=== PATIENT | male | born 1995 | race Caucasian/White ===

== ENCOUNTER 2024-03-19 07:19 | Observation (INO) | payer OTHER, SELFPAY ==
[2024-03-19] VITALS (11 sets, daily range): BP systolic 126–157; BP diastolic 73–98; PULSE 79–115; RESP 15–20; TEMP 36.4–36.9; O2SAT 95–100
--- NOTE | ~2024-03-19 | XR_ITS ---
Clinical Indication: Vomiting AP and lateral views of the chest: Comparison: None Findings: The lungs are clear, without evidence of focal consolidation or pleural effusion. Cardiome diastinal silhouette is within normal limits. Bones and soft tissues are unremarkable. Impression: Normal chest. Reviewed, dictated and finalized at location . Impression: Normal chest.
[2024-03-19 08:33] LABS: Basophils Percent Auto 0.1 % (0.2-1.2); Eosinophils Percent Auto 0.1 % (0-4.4); Hematocrit 47.6 % (42.0-52.0); Hemoglobin 17.3 g/dL (14.0-18.0); Immature Granulocyte Percent A 0.6 % (0-0.5); Lymphocytes Absolute Auto 0.65 K/mm3 (0.9-3.2); Lymphocytes Percent Auto 3.9 % (18.3-44.2); Mean Corpuscular HGB Conc 36.3 g/dl (32-36); Mean Corpuscular Hemoglobin 34.1 pg (26-34); Mean Corpuscular Volume 93.9 fl (80-100); Mean Platelet Volume 9.9 fl (7.4-10.4); Monocytes Absolute Auto 2.1 K/mm3 (0.1-0.6); Monocytes Percent Auto 12.2 % (2.6-8.5); Neutrophils Percent Auto 83.1 % (45.5-73.1); Platelet Count Result 375 k/mm3 (150-375); Red Blood Count 5.07 M/mm3 (4.6-6.20); White Blood Count 16.9 K/mm3 (4.5-10.0)
[2024-03-19 08:45] LABS: Alanine Aminotransferase 76 U/L (6-50); Albumin Level > 6.0 g/dL (3.5-5.1); Alkaline Phosphatase 113 U/L (38-126); Anion Gap 34 mmol/L (4-12); Aspartate Amino Transferase 55 U/L (17-59); Blood Urea Nitrogen 40 mg/dL (9-20); Calcium 10.5 mg/dL (8.4-10.2); Carbon Dioxide 13 mmol/L (22-30); Chloride 87 mmol/L (98-107); Estimated CRCL calculation 55 ml/min; Estimated Glomerular Filt Rate 40; Glucose 139 mg/dL (65-110); Potassium 3.6 mmol/L (3.4-5.0); Sodium 134 mmol/L (137-145)
[2024-03-19 08:53] LABS: Prothrombin Time 13.3 Seconds (11.1-14.7)
[2024-03-19 08:54] LABS: Partial Thromboplastin Time 24.4 Seconds (22.3-36.8)
--- NOTE | 2024-03-19 09:13 | ED.GIBLEED ---
HPI - GI Bleed General Chief complaint: GI Bleed Stated complaint: N/V Blood x2d Time Seen by Provider: 03/19/24 08:51 History of Present Illness HPI Narrative: 28-year-old male history of heavy alcohol use presents to the emergency room for evaluation of nausea and vomiting. The patient states he has had multiple episodes coffee-ground emesis over the last 2 days. States his most recent emesis was bilious. Denies any diarrhea or constipation. Of reports generalized abdominal pain that is worse prior to the improved afterwards. patient states he typically drinks at least 1 pt of alcohol a day, has been doing so for over 6 years. Related Data Allergies Allergy/AdvReac Type Severity Reaction Status Date / Time No Known Allergies Allergy Verified 03/19/24 09:32 Review of Systems Review of Systems: ROS unremarkable except for noted in HPI Exam Narrative: GENERAL: Well-appearing, well-nourished, no physical limitations, and in no acute distress. HEAD: Normocephalic, atraumatic. EYES: Conjunctivae normal, PERRLA and EOMI. CHEST: Clear to auscultation. No respiratory distress. No wheezes rales or rhonchi. HEART: Regular rate and rhythm. No murmur heard. Normal peripheral pulses. ABDOMEN: Soft, nontender, nondistended, normal active bowel sounds. BACK: No CVA tenderness EXTREMITIES: Normal range of motion. No edema. No clubbing or cyanosis SKIN: Warm, dry, no rash. No noted wounds NEURO: No focal deficits. Alert and oriented x3. MAEW. CN's II-XI intact bilaterally, normal gait PSYCH: Cooperative. Normal mood and affect. Course Course Emergency Course: 1200: Consulted with Dr. Faye. he is agreeable a consult patient for further evaluation Vital Signs Vital signs: Vital Signs Temperature 36.6 C 03/19/24 07:22 Pulse Rate 115 H 03/19/24 07:22 Respiratory Rate 20 03/19/24 07:22 Blood Pressure 136/95 H 03/19/24 07:22 Pulse Oximetry 100 03/19/24 07:22 Oxygen Delivery Room Air 03/19/24 07:22 Temperature 36.6 C 03/19/24 07:22 Pulse Rate 115 H 03/19/24 07:22 Respiratory Rate 20 03/19/24 07:22 Blood Pressure 136/95 H 03/19/24 07:22 Pulse Oximetry 100 03/19/24 07:22 Oxygen Delivery Room Air 03/19/24 07:22 MDM - GI Bleed Lab Data 03/19/24 08:26 03/19/24 08:26 Labs: Lab Results 03/19/24 03/19/24 03/19/24 Range/Units 08:26 09:39 11:22 WBC 16.9 H (4.5-10.0) K/mm3 RBC 5.07 (4.6-6.20) M/mm3 Hgb 17.3 (14.0-18.0) g/dL Hct 47.6 (42.0-52.0) % MCV 93.9 (80-100) fl MCH 34.1 H (26-34) pg MCHC 36.3 H (32-36) g/dl RDW 13.0 (11.5-14.5) % Plt Count 375 (150-375) k/mm3 MPV 9.9 (7.4-10.4) fl Immature Gran % (Auto) 0.6 H (0-0.5) % Neut % (Auto) 83.1 H (45.5-73.1) % Lymph % (Auto) 3.9 L (18.3-44.2) % [place] % (Auto) 12.2 H (2.6-8.5) % Eos % (Auto) 0.1 (0-4.4) % Baso % (Auto) 0.1 L (0.2-1.2) % Lymph # (Auto) 0.65 L (0.9-3.2) K/mm3 [place] # (Auto) 2.1 H (0.1-0.6) K/mm3 Eos # (Auto) 0.0 (0-0.3) K/mm3 Baso # (Auto) 0.0 (0.0-0.1) K/mm3 Abs Immat Gran (auto) 0.10 H (0.00-0.031) K/mm3 Absolute Neuts (auto) 14.0 H (1.3-6.7) K/mm3 Absolute Nucleated RBC 0.000 (0.0-0.012) K/mm3 Nucleated RBC % 0.0 (0.0-0.2) % PT 13.3 (11.1-14.7) Seconds INR 1.0 APTT 24.4 (22.3-36.8) Seconds Sodium 134 L (137-145) mmol/L Potassium 3.6 (3.4-5.0) mmol/L Chloride 87 L (98-107) mmol/L Carbon Dioxide 13 L (22-30) mmol/L Anion Gap 34 H (4-12) mmol/L BUN 40 H (9-20) mg/dL Creatinine 2.00 H (0.7-1.3) mg/dL Estim Creat Clear Calc 55 ml/min Estimated GFR 40 L (59 - ) Glucose 139 H (65-110) mg/dL Lactic Acid 2.2 H (0.7-2.0) mmol/L Calcium 10.5 H (8.4-10.2) mg/dL Total Bilirubin 1.0 (0.2-1.3) mg/dL AST 55 (17-59) U/L ALT 76 H (6-50) U/L Alkaline Phosphatase 113 (38-1
[2024-03-19] MEDS: PANTOPRAZOLE SODIUM IV 40 MG VIAL 80 MG IV PUSH (09:40)
[2024-03-19] MEDS: ONDANSETRON INJ 4 MG/2 ML VIAL IV PUSH ×2 (09:42→18:59)
[2024-03-19] MEDS: SODIUM CHLORIDE 0.9% IV 1,000 ML 999 ML IV CONT ×2 (09:42→10:42)
[2024-03-19] MEDS: Please add drug allergy info to patient profile. 1 EACH XX (09:43)
[2024-03-19 09:56] LABS: Lactic Acid Reflex 2.2 mmol/L (0.7-2.0); Lipase 96 U/L (23-300)
[2024-03-19 11:42] LABS: Appearance Urine Cloudy (Clear); Bacteria Urine None Seen /hpf; Bilirubin Urine Negative (Negative); Blood Urine 2+ (Negative); Color Urine Yellow (Yellow); Glucose Urine UA Negative (Negative); Hyaline Casts Urine Present /lpf; Ketones Urine 2+ mg/dL (Negative); Leukocyte Esterase Ur Negative LEU/UL (Negative); Need Manual Microscopic Reviewed; Nitrate Urine Negative (Negative); Non Pathogenic Casts >20; Protein Urine 4+ mg/dL (Negative); RBC Urine 0-2 /hpf (0-2); Specific Grav Ur 1.025 (1.001-1.035); Squamous Epithelial Cell Urine None Seen /hpf (Few); WBC Urine 0-5 /hpf (0-3)
[2024-03-19 11:45] LABS: Add Urine Microscopic? YES
[2024-03-19 12:43] LABS: Reflex Lactic Acid Yes or No Add Lactic
--- NOTE | 2024-03-19 13:00 | PM.IMHP ---
H&P: HPI History of Present Illness Date/Time: 03/19/24 13:00 Chief Complaint: Vomiting blood. Narrative: This is a pleasant 28-year-old male with history of heavy alcohol use and anxiety who presented to the emergency department via private vehicle for evaluation of vomiting blood. The patient provides the following history. He has drank a pint of alcohol a day for the past 6 years but has been cutting down lately and he has not had any alcohol for 1 week. He had mild withdrawal symptoms but does seem to have resolved. The last 2 days he has developed generalized abdominal discomfort with nausea and innumerable bouts of coffee-ground emesis. He endorses increasing personal stress lately and says he drinks a lot of caffeine. He denies NSAID use. He has no known history of peptic ulcers or gastritis. He denies hallucinations, tremors, chest pain, shortness of breath, epigastric pain, bloating, melena, and hematochezia. In the ED: He was afebrile on arrival with a blood pressure of 136/95 and a pulse of 115. Labs are significant for WBC count of 16.9, hemoglobin 17.3, hematocrit 47.9%, platelets 375, INR 1.0, sodium 134, chloride 87, carbon dioxide 13, anion gap 34, BUN 40, creatinine 2.00, lactic acid 2.2, calcium 10.5, ALT 76, total protein 11, albumin greater than 6.0. Urine is positive for 4+ protein, and 2+ ketones, 2+ blood. Chest x-ray showed a normal chest. He was given 2 L normal saline, pantoprazole 80 mg IV, and ondansetron 4 mg IV. He is being admitted in this setting for supportive care and GI consultation. Review of Systems Review of Systems: 12 systems were reviewed and are negative except for as per HPI. [facility] Past Medical History Medical History Alcohol abuse Anxiety Vapes nicotine containing substance Social History Social History (Updated 03/19/24 @ 19:56 by Mariana Camacho PA-C) Social History: Surrogate medical decision maker: Afshin Edward, father. Code status: Full code. Smoking status: Former smoker Tobacco type: e-cigarettes/vaping Second hand tobacco smoke exposure: No Alcohol intake: former Alcohol use details: Drinks a pint of alcohol a day. Do You Feel Safe in your Home?: Yes Lack of Transportation: No Lack of Food: Never True Current Housing: I Have Housing Concerned About Future Housing: No Difficulty Paying Gas/Electric Bills: No Difficulty Paying for Meds: No Currently Unemployed: No Education: Don't Know Difficulty w/ Childcare or Family Care: No Spiritual care concerns: No Meds Home Medications and Allergies Allergies Allergy/AdvReac Type Severity Reaction Status Date / Time No Known Allergies Allergy Verified 03/19/24 14:28 Vital Signs Vital Signs - 24 hr 03/19/24 07:22 Temperature 97.9 F Pulse Rate 115 H Respiratory Rate 20 Blood Pressure 136/95 H Pulse Oximetry 100 Oxygen Delivery Room Air Exam Narrative: General: Moderately ill-appearing gentleman in the semi-Mane position in bed. Weight: 77.2 kg. BMI: 22.5. HEENT: Normocephalic, atraumatic. PERRL, EOMI. Sclera anicteric. Dry mucous membranes. Neck: Supple. Respiratory: Lungs are clear to auscultation bilaterally. Cardiovascular: Tachycardic with normal S1-S2. Gastrointestinal: Abdomen is soft and nondistended with positive bowel sounds. Mildly tender to palpation epigastric region. No guarding or rebound tenderness. Skin: Warm and mildly diaphoretic. Extremities: No cyanosis, clubbing, or edema. Radial and pedal pulses intact. Neurological: Alert. Cranial nerves 2-12 are grossly intact. No tremors. No gross focal deficits to casual conversation. Psychiatric: Pleasant and cooperative with appropriate mood and flat affect. H&P: Results Labs Labs: Short CBC 03/19/24 Range/Units 08:26 WBC 16.9 H (4.5-10.0) K/mm3 Hgb 17.3 (14.0-18.0) g/dL Hct 47.6 (42.0-52.0) % Plt Count 375 (150-375) k/mm3 [facility] 03/19/24 08:26 Sodium
[2024-03-19] MEDS: SODIUM CHLORIDE 0.9% IV 1,000 ML 125 ML IV CONT (13:17)
[2024-03-19 13:51] LABS: Hematocrit 44.4 % (42.0-52.0); Hemoglobin 15.5 g/dL (14.0-18.0)
[2024-03-19 14:02] LABS: Lactic Acid Reflex 0.9 mmol/L (0.7-2.0)
[2024-03-19 14:03] LABS: Anion Gap 22 mmol/L (4-12); Blood Urea Nitrogen 35 mg/dL (9-20); Calcium 9.5 mg/dL (8.4-10.2); Carbon Dioxide 19 mmol/L (22-30); Chloride 95 mmol/L (98-107); Estimated CRCL calculation 73 ml/min; Estimated Glomerular Filt Rate 56; Glucose 113 mg/dL (65-110); Magnesium 2.5 mg/dL (1.6-2.3); Potassium 3.9 mmol/L (3.4-5.0); Sodium 136 mmol/L (137-145)
[2024-03-19 14:21] LABS: Creatine Kinase 295 U/L (55-170)
--- NOTE | 2024-03-19 14:28 | ADMGEN ---
This patient, Mainor Edward, was admitted to [facility] Surg Room 312-01. Patient/family oriented to hospital policies and general routines including ID bracelet, bed and alarms, visiting hours, pain management, procedures, bathroom and other care routines, personal items, smoking policy, room service/diet, and visiting hours. Information on how to activate the Rapid Response Team has been discussed. Patient/Family are encouraged to report perceived risks to care and to ask questions if they do not understand what they are told or what they should do.
[2024-03-19] MEDS: THIAMINE HCL 200 MG/2 ML VIAL 100 MG IV PUSH (15:36)
[2024-03-19] MEDS: PROMETHAZINE HCL 25 MG/ML AMPUL 12.5 MG IV PUSH (20:43)
[2024-03-19] MEDS: NICOTINE (*PBKC) 14 MG PATCH 1 PATCH TRANSDERM (20:43)
[2024-03-19] MEDS: PANTOPRAZOLE SODIUM IV 40 MG VIAL IV PUSH (20:46)
[2024-03-19] MEDS: DEXTROSE 5%/0.9% SOD CHL 1,000 ML 125 ML IV CONT (22:26)
[2024-03-20] VITALS (9 sets, daily range): BP systolic 105–133; BP diastolic 61–79; PULSE 66–85; RESP 16–20; TEMP 36.1–37; O2SAT 96–100
[2024-03-20] MEDS: DEXTROSE 5%/0.9% SOD CHL 1,000 ML 125 ML IV CONT (06:23)
[2024-03-20 06:38] LABS: Basophils Percent Auto 0.2 % (0.2-1.2); Eosinophils Percent Auto 0.1 % (0-4.4); Hematocrit 41.3 % (42.0-52.0); Hemoglobin 13.6 g/dL (14.0-18.0); Immature Granulocyte Absolute 0.05 K/mm3 (0.00-0.031); Immature Granulocyte Percent A 0.5 % (0-0.5); Lymphocytes Absolute Auto 1.34 K/mm3 (0.9-3.2); Lymphocytes Percent Auto 13.9 % (18.3-44.2); Mean Corpuscular HGB Conc 32.9 g/dl (32-36); Mean Corpuscular Hemoglobin 32.9 pg (26-34); Mean Platelet Volume 9.9 fl (7.4-10.4); Monocytes Absolute Auto 1.2 K/mm3 (0.1-0.6); Monocytes Percent Auto 12.7 % (2.6-8.5); Neutrophils Percent Auto 72.6 % (45.5-73.1); Platelet Count Result 278 k/mm3 (150-375); Red Blood Count 4.13 M/mm3 (4.6-6.20); Red Cell Distribution Width 13.2 % (11.5-14.5); White Blood Count 9.6 K/mm3 (4.5-10.0)
--- NOTE | 2024-03-20 06:47 | PC.NURSE ---
I have reviewed the charting and agree with the findings. Will continue to monitor and watch for changes.
[2024-03-20 06:49] LABS: Alanine Aminotransferase 50 U/L (6-50); Albumin Level 4.6 g/dL (3.5-5.1); Alkaline Phosphatase 71 U/L (38-126); Anion Gap 9 mmol/L (4-12); Aspartate Amino Transferase 47 U/L (17-59); Bilirubin,Total 1.1 mg/dL (0.2-1.3); Blood Urea Nitrogen 22 mg/dL (9-20); Calcium 9.4 mg/dL (8.4-10.2); Carbon Dioxide 30 mmol/L (22-30); Chloride 100 mmol/L (98-107); Estimated CRCL calculation 101 ml/min; Estimated Glomerular Filt Rate > 60; Glucose 105 mg/dL (65-110); Magnesium 2.6 mg/dL (1.6-2.3); Potassium 3.8 mmol/L (3.4-5.0); Sodium 139 mmol/L (137-145)
[2024-03-20] MEDS: PANTOPRAZOLE SODIUM IV 40 MG VIAL IV PUSH (09:00)
[2024-03-20] MEDS: NICOTINE (*PBKC) 14 MG PATCH 1 PATCH TRANSDERM (09:00)
[2024-03-20] MEDS: LACTATED RINGERS 1,000 ML 150 ML IV CONT (11:12)
--- NOTE | 2024-03-20 11:12 | WPDANESEPPF ---
Anes - Initial Pre Proc Eval Procedure: Operation Date: 03/20/24 12:00 Proposed Procedures p Esophagogastroduodenoscopy - Tomy Reyes MD Date/Time: 03/20/24 11:12 Surgeon: Nora Newman APRN Pre Op Diagnosis: Upper GI Bleed Patient Data Age: 28 Gender: M Height: 1.85 m Weight: 90.5 kg Last Vital Signs Temp 97 F L 03/20/24 11:08 Pulse 74 03/20/24 11:08 Resp 18 03/20/24 11:08 BP 132/79 03/20/24 11:08 Pulse Ox 100 03/20/24 11:08 O2 Del Method Room Air 03/20/24 11:08 Allergies Allergy/AdvReac Type Severity Reaction Status Date / Time No Known Allergies Allergy Verified 03/19/24 14:28 Home Medications Medication Instructions Recorded Confirmed Type No Home Medications 03/20/24 03/20/24 History Laboratory Tests 03/19/24 03/19/24 03/19/24 11:22 13:45 13:47 WBC RBC Hgb 15.5 g/dL (14.0-18.0) Hct 44.4 % (42.0-52.0) MCV MCH MCHC RDW Plt Count MPV Immature Gran % (Auto) Neut % (Auto) Lymph % (Auto) [place] % (Auto) Eos % (Auto) Baso % (Auto) Lymph # (Auto) [place] # (Auto) Eos # (Auto) Baso # (Auto) Abs Immat Gran (auto) Absolute Neuts (auto) Absolute Nucleated RBC Nucleated RBC % Sodium 136 L mmol/L (137-145) Potassium 3.9 mmol/L (3.4-5.0) Chloride 95 L mmol/L (98-107) Carbon Dioxide 19 L mmol/L (22-30) Anion Gap 22 H mmol/L (4-12) BUN 35 H mg/dL (9-20) Creatinine 1.50 H mg/dL (0.7-1.3) Estim Creat Clear Calc 73 ml/min Estimated GFR 56 L (59 - ) Glucose 113 H mg/dL (65-110) Lactic Acid 0.9 mmol/L (0.7-2.0) Calcium 9.5 mg/dL (8.4-10.2) Magnesium 2.5 H mg/dL (1.6-2.3) Total Bilirubin AST ALT Alkaline Phosphatase Total Creatine Kinase 295 H U/L (55-170) Total Protein Albumin Urine Color Yellow (Yellow) Urine Appearance Cloudy H (Clear) Urine pH 6.0 (5.0-9.0) Ur Specific Candor 1.025 (1.001-1.035) Urine Protein 4+ H mg/dL (Negative) Urine Glucose (UA) Negative mg/dL (Negative) Urine Ketones 2+ H mg/dL (Negative) Ur Blood (Man) 2+ H (Negative) Urine Nitrate Negative (Negative) Urine Bilirubin Negative (Negative) Urine Urobilinogen 1.0 mg/dL (<2.0) Add Ur Microanalysis Reviewed Leukocyte Esterase Rfl Negative JEN/UL (Negative) Urine RBC 0-2 /hpf (0-2) Urine WBC 0-5 /hpf (0-3) Ur Squamous Epith Cells None seen /hpf (Few) Urine Bacteria None seen /hpf Urine Casts >20 Hyaline Casts Present /lpf (None) 03/20/24 06:15 WBC 9.6 K/mm3 (4.5-10.0) RBC 4.13 L M/mm3 (4.6-6.20) Hgb 13.6 L g/dL (14.0-18.0) Hct 41.3 L % (42.0-52.0) MCV 100.0 D fl (80-100) MCH 32.9 pg (26-34) MCHC 32.9 g/dl (32-36) RDW 13.2 % (11.5-14.5) Plt Count 278 k/mm3 (150-375) MPV 9.9 fl (7.4-10.4) Immature Gran % (Auto) 0.5 % (0-0.5) Neut % (Auto) 72.6 % (45.5-73.1) Lymph % (Auto) 13.9 L % (18.3-44.2) [place] % (Auto) 12.7 H % (2.6-8.5) Eos % (Auto) 0.1 % (0-4.4) Baso % (Auto) 0.2 % (0.2-1.2) Lymph # (Auto) 1.34 K/mm3 (0.9-3.2) [place] # (Auto) 1.2 H K/mm3 (0.1-0.6) Eos # (Auto) 0.0 K/mm3 (0-0.3) Baso # (Auto) 0.0 K/mm3 (0.0-0.1) Abs Immat Gran (auto) 0.05 H K/mm3 (0.00-0.031) Absolute Neuts (auto) 7.0 H K/mm3
--- NOTE | 2024-03-20 12:16 | WPDGICN ---
Assessment and Plan Assessment and plan (1) Hematemesis: Code(s): K92.0 - Hematemesis Status: Acute Assessment and Plan: will proceed with urgent EGD probably esophagitis, assess for varices, ulcer, etc iv protonix stop drinking alcohol more recommendations after egd (2) Alcohol abuse: Code(s): F10.10 - Alcohol abuse, uncomplicated Status: Acute Assessment and Plan: monitor for withdrawal on thiamine, nutrition support (3) Acute kidney injury: Code(s): N17.9 - Acute kidney failure, unspecified Status: Acute Assessment and Plan: iv fluids and improving here with dehydration (4) Ketoacidosis: Code(s): E87.29 - Other acidosis Status: Acute Assessment and Plan: treated (5) Dehydration: Code(s): E86.0 - Dehydration Status: Acute (6) Anxiety: Code(s): F41.9 - Anxiety disorder, unspecified Status: Acute (7) Elevated transaminase level: Code(s): R74.01 - Elevation of levels of liver transaminase levels Status: Acute Assessment and Plan: from alcohol use, normal bili normalized now monitor will check hepatitis panel GI Consult Note Consult date/time: 03/20/24 12:16 Reason for consult: coffee ground emesis, intractable n/v HPI: Mainor Edward is a 28 year old male with history of heavy alcohol use (1 pint every 2 days for years) and anxiety who presented to the emergency department via private vehicle for evaluation of vomiting blood for last 2 days. He says that has not had alcohol for at least a week then developed mild withdrawal symptoms but resolved however last 2 days with epigastric pain and intractable nausea and innumerable bouts of coffee-ground emesis. He denies NSAID use. Never had EGD and is not taking ppi. Labs were significant for WBC count of 16.9, hemoglobin 17.3, hematocrit 47.9%, platelets 375, INR 1.0, sodium 134, chloride 87, carbon dioxide 13, anion gap 34, BUN 40, creatinine 2.00, lactic acid 2.2, calcium 10.5, ALT 76, total protein 11, albumin greater than 6.0. Urine is positive for 4+ protein, and 2+ ketones, 2+ blood. Chest x-ray showed a normal chest. Nausea has improved after medical management, started on thiamine, iv protonix and npo status. lipase normal. Denies melena. Review of Systems Constitutional: Constitutional: Denies chills Eyes: Eyes: Denies blurry vision ENT: Comments: sinus drainage Cardiovascular: Cardiovascular: Denies chest pain Respiratory: Respiratory: Denies dyspnea Gastrointestinal: Gastrointestinal: Reports nausea, Reports vomiting and Reports hematemesis Genitourinary: Genitourinary: Denies dysuria Musculoskeletal: Musculoskeletal: Denies myalgias Integumentary/Breasts: Skin/Breast: Denies rash Neurologic: Denies confusion Psychiatric: Psychiatric: Reports anxiety PMF Past Medical History Medical History Alcohol abuse Anxiety Elevated transaminase level Vapes nicotine containing substance Social History Social History (Updated 03/19/24 @ 19:56 by Mariana Camacho PA-C) Social History: Surrogate medical decision maker: Afshin Edward, father. Code status: Full code. Smoking status: Former smoker Tobacco type: e-cigarettes/vaping Second hand tobacco smoke exposure: No Alcohol intake: former Alcohol use details: Drinks a pint of alcohol a day. Do You Feel Safe in your Home?: Yes Lack of Transportation: No Lack of Food: Never True Current Housing: I Have Housing Concerned About Future Housing: No Difficulty Paying Gas/Electric Bills: No Difficulty Paying for Meds: No Currently Unemployed: No Education: Don't Know Difficulty w/ Childcare or Family Care: No Spiritual care concerns: No Meds Home Medications and Allergies Home Medications Medication Instructions Recorded Confirmed Type No Home Medications 03/20/24 03/20/24 History Allergies Allergy/Adv
--- NOTE | 2024-03-20 13:22 | PM.DS ---
DS: Admitting Diagnosis Discharge Date 03/20/2024 Admitting Diagnosis Vomiting blood DS: Discharge Diagnosis Discharge Diagnosis (1) Hematemesis: Code(s): K92.0 - Hematemesis Status: Acute (2) Acute kidney injury: Code(s): N17.9 - Acute kidney failure, unspecified Status: Acute (3) Ketoacidosis: Code(s): E87.29 - Other acidosis Status: Acute (4) Dehydration: Code(s): E86.0 - Dehydration Status: Acute (5) Alcohol abuse: Code(s): F10.10 - Alcohol abuse, uncomplicated Status: Acute (6) Anxiety: Code(s): F41.9 - Anxiety disorder, unspecified Status: Acute (7) Vapes nicotine containing substance: Code(s): Z72.0 - Tobacco use Status: Acute Plan Plan The patient presented to the emergency department for evaluation of coffee-ground emesis for the past 2 days after having quit drinking approximately 1 week ago as detailed in HPI. Labs, imaging, EKG, and all reports were personally reviewed. History is concerning for esophagitis, gastritis, or possible ulcers. Varices are a consideration but seem less likely thus will hold on octreotide and ceftriaxone. Continue pantoprazole and trend hemoglobin and hematocrit. Dr. Reyes has been consulted and the patient will be NPO after midnight for probable EGD tomorrow. He has an acute kidney injury which is likely due to profound dehydration and he will be aggressively hydrated. Ketoacidosis and renal failure should improve with hydration and labs will be monitored closely. Avoid nephrotoxic agents and monitor strict I/O. He had withdrawal symptoms several days ago and seems to be doing well at this time however we will initiate CIWA protocol. Nicotine patch ordered per patient request. Resume fluoxetine and propanolol for anxiety once tolerating p.o.. Findings and treatment plan were discussed with the patient. Questions were solicited and answered to satisfaction. The patient's medical management will be taken over by the hospitalist team in a.m. DS: Summary Hospital Course Reason for hospitalization: Vomiting Blood Hospital Course: Admission: Medical Chart Narrative: This is a pleasant 28-year-old male with history of heavy alcohol use and anxiety who presented to the emergency department via private vehicle for evaluation of vomiting blood. The patient provides the following history. He has drank a pint of alcohol a day for the past 6 years but has been cutting down lately and he has not had any alcohol for 1 week. He had mild withdrawal symptoms but does seem to have resolved. The last 2 days he has developed generalized abdominal discomfort with nausea and innumerable bouts of coffee-ground emesis. He endorses increasing personal stress lately and says he drinks a lot of caffeine. He denies NSAID use. He has no known history of peptic ulcers or gastritis. He denies hallucinations, tremors, chest pain, shortness of breath, epigastric pain, bloating, melena, and hematochezia. In the ED: He was afebrile on arrival with a blood pressure of 136/95 and a pulse of 115. Labs are significant for WBC count of 16.9, hemoglobin 17.3, hematocrit 47.9%, platelets 375, INR 1.0, sodium 134, chloride 87, carbon dioxide 13, anion gap 34, BUN 40, creatinine 2.00, lactic acid 2.2, calcium 10.5, ALT 76, total protein 11, albumin greater than 6.0. Urine is positive for 4+ protein, and 2+ ketones, 2+ blood. Chest x-ray showed a normal chest. He was given 2 L normal saline, pantoprazole 80 mg IV, and ondansetron 4 mg IV. He is being admitted in this setting for supportive care and GI consultation. 03/20/2024: DISCHARGED Patient underwent EGD which showed a grade 4 reflux esophagitis with chronic inflammation tissue and ulcers but no varices noted. Patient was also found to a hiatal hernia at the GE junction. GI recommended long-term PPI b.i.d. as well Carafate with each meal for 2 weeks. Patient tolerated pr
== END 2024-03-20 14:05 | disposition home or self-care (01) ==
LOC: ANHED 12:51 → ANH3MEDSUR 15:02
PROVIDERS: Emergency Medicine; Internal Medicine Gastroenterology; Physician Assistant; Admitting Provider General Practice; Emergency Provider Nurse Practitioner Family; Visit Provider Nurse Practitioner Family
PROC: 0DJ08ZZ Inspection of Upper Intestinal Tract, Via Natural or Artificial Opening Endoscopic (ICD-10-PCS; CPT 43235; principal; 2024-03-20 12:00)
DX: K92.0 Hematemesis (principal); N17.9 Acute kidney failure, unspecified; K29.50 Unspecified chronic gastritis without bleeding; K21.00 Gastro-esophageal reflux disease with esophagitis, without bleeding; K44.9 Diaphragmatic hernia without obstruction or gangrene; E87.29 Other acidosis; E86.0 Dehydration; R74.01 Elevation of levels of liver transaminase levels; F10.10 Alcohol abuse, uncomplicated; F41.9 Anxiety disorder, unspecified; F17.290 Nicotine dependence, other tobacco product, uncomplicated
CPT/HCPCS: 43239; 36415; 71046; 80048; 80053; 81001; 82550; 83605; 83690; 83735; 85014; 85018; 85025; 85610; 85730; 86850; 86900; 86901; 88305; 96361; 96374; 96375; 99285; A9270; G0378; J2405; J2470; J2550; J2704; J3411; J7030; J7042; J7120

== ENCOUNTER 2024-05-13 11:13 | Observation (INO) | payer OTHER, SELFPAY ==
[2024-05-13] VITALS (7 sets, daily range): BP systolic 103–158; BP diastolic 75–84; PULSE 77–100; RESP 12–23; TEMP 36.4–37.2; O2SAT 99–100; BMI 25.4
[2024-05-13 12:22] LABS: Basophils Percent Auto 0.1 % (0.2-1.2); Eosinophils Percent Auto 0.1 % (0-4.4); Hematocrit 49.1 % (42.0-52.0); Hemoglobin 16.5 g/dL (14.0-18.0); Immature Granulocyte Absolute 0.15 K/mm3 (0.00-0.031); Immature Granulocyte Percent A 0.9 % (0-0.5); Lymphocytes Absolute Auto 0.55 K/mm3 (0.9-3.2); Lymphocytes Percent Auto 3.4 % (18.3-44.2); Mean Corpuscular HGB Conc 33.6 g/dl (32-36); Mean Corpuscular Hemoglobin 32.8 pg (26-34); Mean Corpuscular Volume 97.6 fl (80-100); Mean Platelet Volume 10.4 fl (7.4-10.4); Monocytes Absolute Auto 1.2 K/mm3 (0.1-0.6); Monocytes Percent Auto 7.4 % (2.6-8.5); Neutrophils Absolute Auto 14.4 K/mm3 (1.3-6.7); Neutrophils Percent Auto 88.1 % (45.5-73.1); Platelet Count Result 376 k/mm3 (150-375); Red Blood Count 5.03 M/mm3 (4.6-6.20); Red Cell Distribution Width 12.5 % (11.5-14.5); White Blood Count 16.3 K/mm3 (4.5-10.0)
[2024-05-13 12:27] LABS: Prothrombin Time 13.7 Seconds (11.1-14.7)
[2024-05-13 12:28] LABS: Partial Thromboplastin Time 24.9 Seconds (22.3-36.8)
[2024-05-13 12:48] LABS: Alanine Aminotransferase 47 U/L (6-50); Alkaline Phosphatase 122 U/L (38-126); Anion Gap 41 mmol/L (4-12); Aspartate Amino Transferase 45 U/L (17-59); Bilirubin,Total 1.2 mg/dL (0.2-1.3); Blood Urea Nitrogen 31 mg/dL (9-20); Calcium 9.8 mg/dL (8.4-10.2); Carbon Dioxide 11 mmol/L (22-30); Chloride 86 mmol/L (98-107); Estimated CRCL calculation 57 ml/min; Estimated Glomerular Filt Rate 40; Glucose 159 mg/dL (65-110); Sodium 138 mmol/L (137-145)
[2024-05-13 13:09] LABS: Albumin Level > 6.0 g/dL (3.5-5.1)
--- NOTE | 2024-05-13 13:43 | ED.ABDPAIN ---
HPI - Abdominal Pain General Chief Complaint: Abdominal Pain Stated Complaint: I believed my ulcer opened up Time Seen by Provider: 05/13/24 13:17 Source: patient Mode of arrival: ambulatory Limitations: clinical condition (vomiting/retching) History of Present Illness HPI narrative: Patient presents with concern that his ulcer opened up. Diagnosed with this approximately 1 month ago during an admission here when an EGD was performed. Had been prescribed medications and reports taking about 1/2 of them and then stopping. Drinks a few pints of alcohol per week. No NSAIDs. States the vomit is dark and occurring nearly hourly. He only has abdominal pain with vomiting. Started having coffee ground emesis around midnight. Related Data Home Medications Medication Instructions Recorded Confirmed No Home Medications 03/20/24 05/14/24 Allergies Allergy/AdvReac Type Severity Reaction Status Date / Time No Known Allergies Allergy Verified 05/14/24 08:56 [facility] Past Medical History Medical History Alcohol abuse Anxiety Coffee ground emesis Reflux esophagitis Vapes nicotine containing substance Surgical History Surgical History History of esophagogastroduodenoscopy (03/2024) Grade 4 reflux esophagitis and hiatal hernia. Social History Social History Social History: Surrogate medical decision maker: Afshin Edward, father. Code status: Full code. Years smoked: 9 Smoking status: Current every day smoker Tobacco type: e-cigarettes/vaping Second hand tobacco smoke exposure: No Alcohol intake: former Alcohol use details: Drinks a pint of alcohol a day. Substance use: current Substance use type: marijuana Other substance usage details: Daily marijuana Last use: 05/13/24 Do You Feel Safe in your Home?: Yes Lack of Transportation: No Lack of Food: Never True Current Housing: I Have Housing Concerned About Future Housing: No Difficulty Paying Gas/Electric Bills: No Difficulty Paying for Meds: No Currently Unemployed: No Education: Trade/Vocational Certificate Difficulty w/ Childcare or Family Care: No Spiritual care concerns: No Exam Narrative: GENERAL: in mild acute distress. HEAD: Normocephalic, atraumatic. EYES: Non injected, non icteric ENT: Nares clear, no rhinorrhea or epistaxis. No frankly bloody or dried blood on tongue or posterior oropharynx. NECK: Supple. CHEST: Speaking in full sentences. No respiratory distress. HEART: Regular rate and rhythm. . ABDOMEN: Soft, nondistended. Non tender to palpation. EXTREMITIES: Normal range of motion. No lower extremity edema. SKIN: Warm, dry, no rash. NEURO: No focal deficits. Alert and oriented x3. PSYCH: Normal mood and affect. Course Vital Signs Vital signs: Vital Signs Temperature 97.6 F 05/13/24 11:33 Pulse Rate 98 05/13/24 11:33 Respiratory Rate 20 05/13/24 11:33 Blood Pressure 138/82 05/13/24 11:33 Pulse Oximetry 100 05/13/24 11:33 Oxygen Delivery Room Air 05/13/24 11:33 Temperature 99.2 F 05/14/24 13:34 Pulse Rate 84 05/14/24 13:34 Respiratory Rate 20 05/14/24 13:34 Blood Pressure 131/84 05/14/24 13:34 Pulse Oximetry 100 05/14/24 13:34 Oxygen Delivery Room Air 05/14/24 10:06 MDM - Abdominal Pain MDM Narrative Medical decision making narrative: Patient presents with concern for upper GI Bleed. He was diagnosed with an ulcer approxiamtely a month ago and thinks it opened up . Regular alcohol consumption. Reports coffee ground emesis and other dark emesis. In the ED he has vital signs within normal limits. Given protonix and antiemetics. Patient has an ALEJANDRO. Receiving fluids. Hyperalbuminemia. Continuing to vomit. Additional meds ordered. Mild hyperglycemia but with large anion gap and acidosis. [place] bleedin
[2024-05-13] MEDS: SODIUM CHLORIDE 0.9% IV 1,000 ML 999 ML IV CONT ×2 (14:09→15:29)
[2024-05-13] MEDS: PANTOPRAZOLE SODIUM IV 40 MG VIAL 80 MG IV PUSH (14:11)
[2024-05-13] MEDS: ONDANSETRON INJ 4 MG/2 ML VIAL IV PUSH (14:11)
[2024-05-13 14:36] LABS: Lactic Acid Reflex 2.4 mmol/L (0.7-2.0)
[2024-05-13] MEDS: PROCHLORPERAZINE EDISYLATE 10 MG/2 ML VIAL 5 MG IV PUSH (14:41)
[2024-05-13 14:47] LABS: Alveolar/Arterial O2 Gradient 14.8 mmHg; Base Excess ABG -4.9 mEq/l (+/-2.0); Fractional Inspired Oxygen 21 %; HCO3 ABG 15.4 mEq/l (22.0-26.0); Oxygen Content ABG 22.4 %vol (16.0-22.0); Oxygen Saturation ABG 98.5 % (95.0-100.0); Oxyhemoglobin 98.1 % THb (90.0-100.0); PO2 ABG 110.6 mmHg (80.0-100.0); PO2 FiO2 Ratio Arterial Blood 5.27 %; Total Hemoglobin 16.2 g/dL (12.0-18.0); pH ABG 7.498 (7.350-7.450)
[2024-05-13 14:50] LABS: Device ROOM AIR; Modified Allen's Test Pass; PCO2 ABG 20.3 mmHg (35.0-45.0); Site Drawn LEFT RADIAL
--- NOTE | 2024-05-13 15:43 | PC.NURSE ---
Unable to collect urine at this time d/t pt sleeping.
--- NOTE | 2024-05-13 17:00 | PM.IMHP ---
H&P: HPI History of Present Illness Date/Time: 05/13/24 17:00 Chief Complaint: Abdominal pain. Narrative: This is a 28-year-old male with history of grade 4 reflux esophagitis on EGD in March 2024, alcohol abuse, and anxiety who presented to the emergency department via private vehicle for evaluation of abdominal pain. The patient provides the following history. Since his hospitalization 2 months ago he has started drinking again admits that he stopped taking the pantoprazole and sucralfate which was prescribed to him. For the past couple of days he began experiencing severe epigastric pain with nausea and at least 1 episode of coffee-ground emesis yesterday. He has not been able to eat or drink the last 48 hours due to his symptoms. He is having some tremors. He denies hallucinations, seizure activity, chest pain, shortness of breath, melena, and hematochezia. In the ED: He was afebrile on arrival with stable vital signs and a blood pressure of 138/82. Labs were significant for WBC count of 16.3, chloride 96, carbon dioxide 11, anion gap 41, BUN 31, creatinine 2.00, glucose 159, lactic acid 2.4, total protein 11.0, albumin greater than 6, beta hydroxybutyrate 10.20. ABG showed a pH of 7.498, pCO2 20.3, PO2 110.6, HC03 15.4. He was given a 2 L normal saline bolus, pantoprazole 80 mg IV push, and prochlorperazine 5 mg IV and he is being admitted in this setting for further treatment and evaluation. Review of Systems Review of Systems: 12 systems were reviewed and are negative except for as per HPI. [facility] Past Medical History Medical History Alcohol abuse Anxiety Reflux esophagitis Vapes nicotine containing substance Surgical History Surgical History History of esophagogastroduodenoscopy (03/2024) Grade 4 reflux esophagitis and hiatal hernia. Social History Social History Social History: Surrogate medical decision maker: Afshin Edward, father. Code status: Full code. Years smoked: 9 Smoking status: Current every day smoker Tobacco type: e-cigarettes/vaping Second hand tobacco smoke exposure: No Alcohol intake: former Alcohol use details: Drinks a pint of alcohol a day. Substance use: current Substance use type: marijuana Other substance usage details: Daily marijuana Last use: 05/13/24 Do You Feel Safe in your Home?: Yes Lack of Transportation: No Lack of Food: Never True Current Housing: I Have Housing Concerned About Future Housing: No Difficulty Paying Gas/Electric Bills: No Difficulty Paying for Meds: No Currently Unemployed: No Education: Trade/Vocational Certificate Difficulty w/ Childcare or Family Care: No Spiritual care concerns: No Meds Home Medications and Allergies Home Medications Medication Instructions Recorded Confirmed Type No Home Medications 03/20/24 05/13/24 History Allergies Allergy/AdvReac Type Severity Reaction Status Date / Time No Known Allergies Allergy Verified 05/13/24 11:13 Vital Signs Vital Signs - 24 hr 05/13/24 11:33 05/13/24 13:20 05/13/24 12:31 Temperature 97.6 F Pulse Rate 98 96 83 Respiratory Rate 20 20 16 Blood Pressure 138/82 141/80 H 124/75 Pulse Oximetry 100 100 99 Oxygen Delivery Room Air 05/13/24 13:01 05/13/24 13:31 05/13/24 15:01 Temperature Pulse Rate 93 77 92 Respiratory Rate 12 19 23 H Blood Pressure 141/80 H 103/79 131/84 Pulse Oximetry 99 100 99 Oxygen Delivery Exam Narrative: General: Moderately ill-appearing gentleman in the semi-Mane position in bed. Weight: 87.6 kg. BMI: 25.5. HEENT: PERRL, EOMI. Sclera anicteric. Dry mucous membranes. Neck: Supple. Respiratory: Lungs are clear to auscultation bilaterally. Cardiovascular: Tachycardic with normal S1-S2. Gastrointestinal: Abdomen is soft and nondistended with positive bowel sounds. Mildly t
--- NOTE | 2024-05-13 17:06 | ADMGEN ---
This patient, Mainor Edward, was admitted to [facility] Room 300-01. Patient/family oriented to hospital policies and general routines including ID bracelet, bed and alarms, visiting hours, pain management, procedures, bathroom and other care routines, personal items, smoking policy, room service/diet, and visiting hours. Information on how to activate the Rapid Response Team has been discussed. Patient/Family are encouraged to report perceived risks to care and to ask questions if they do not understand what they are told or what they should do.
[2024-05-13 17:19] LABS: Reflex Lactic Acid Yes or No Add Lactic
[2024-05-13 17:21] LABS: Add Urine Microscopic? YES; Appearance Urine Cloudy (Clear); Bacteria Urine None Seen /hpf; Bilirubin Urine Negative (Negative); Blood Urine 2+ (Negative); Color Urine Yellow (Yellow); Glucose Urine UA Negative (Negative); Hyaline Casts Urine Present /lpf; Ketones Urine 4+ mg/dL (Negative); Leukocyte Esterase Ur Negative LEU/UL (Negative); Need Manual Microscopic Reviewed; Nitrate Urine Negative (Negative); Non Pathogenic Casts >20; Protein Urine 3+ mg/dL (Negative); RBC Urine 0-2 /hpf (0-2); Specific Grav Ur 1.021 (1.001-1.035); Squamous Epithelial Cell Urine None Seen /hpf (Few); WBC Urine 0-5 /hpf (0-3)
[2024-05-13 17:54] LABS: Anion Gap 27 mmol/L (4-12); Blood Urea Nitrogen 31 mg/dL (9-20); Calcium 8.8 mg/dL (8.4-10.2); Carbon Dioxide 17 mmol/L (22-30); Chloride 95 mmol/L (98-107); Estimated CRCL calculation 75 ml/min; Estimated Glomerular Filt Rate 56; Glucose 122 mg/dL (65-110); Magnesium 2.2 mg/dL (1.6-2.3); Potassium 3.9 mmol/L (3.4-5.0); Sodium 139 mmol/L (137-145)
[2024-05-13] MEDS: THIAMINE HCL 200 MG/2 ML VIAL 100 MG IV PUSH (18:18)
[2024-05-13] MEDS: DEXTROSE 5%/0.9% SOD CHL 1,000 ML 100 ML IV CONT (18:24)
[2024-05-13] MEDS: NICOTINE (*PBKC) 21 MG PATCH 1 PATCH TRANSDERM (18:26)
[2024-05-13] MEDS: LORazepam (*CRX) 1 MG TABLET 2 MG PO (18:46)
[2024-05-13 18:54] LABS: Glucose Point of Care 136 mg/dl (65-105)
[2024-05-13] MEDS: PANTOPRAZOLE SODIUM IV 40 MG VIAL IV PUSH (20:07)
[2024-05-13 23:52] LABS: Glucose Point of Care 166 mg/dl (65-105)
[2024-05-14] VITALS (7 sets, daily range): BP systolic 108–139; BP diastolic 71–84; PULSE 80–88; RESP 12–25; TEMP 36.6–37.3; O2SAT 97–100
[2024-05-14] MEDS: DEXTROSE 5%/0.9% SOD CHL 1,000 ML 100 ML IV CONT (04:25)
[2024-05-14 06:00] LABS: Glucose Point of Care 130 mg/dl (65-105)
[2024-05-14 06:27] LABS: Mean Corpuscular HGB Conc 33.3 g/dl (32-36); Mean Corpuscular Hemoglobin 32.8 pg (26-34); Mean Corpuscular Volume 98.5 fl (80-100); Mean Platelet Volume 10.3 fl (7.4-10.4); Platelet Count Result 280 k/mm3 (150-375); Red Blood Count 3.96 M/mm3 (4.6-6.20); Red Cell Distribution Width 12.5 % (11.5-14.5); White Blood Count 14.5 K/mm3 (4.5-10.0)
[2024-05-14 06:40] LABS: Alanine Aminotransferase 31 U/L (6-50); Albumin Level 4.9 g/dL (3.5-5.1); Alkaline Phosphatase 75 U/L (38-126); Anion Gap 16 mmol/L (4-12); Aspartate Amino Transferase 38 U/L (17-59); Bilirubin,Total 1.3 mg/dL (0.2-1.3); Blood Urea Nitrogen 18 mg/dL (9-20); Calcium 8.9 mg/dL (8.4-10.2); Carbon Dioxide 26 mmol/L (22-30); Chloride 96 mmol/L (98-107); Creatine Kinase 270 U/L (55-170); Estimated CRCL calculation 122 ml/min; Estimated Glomerular Filt Rate > 60; Glucose 140 mg/dL (65-110); Magnesium 2.7 mg/dL (1.6-2.3); Potassium 3.2 mmol/L (3.4-5.0); Sodium 138 mmol/L (137-145)
[2024-05-14] MEDS: NICOTINE (*PBKC) 21 MG PATCH 1 PATCH TRANSDERM (08:31)
[2024-05-14] MEDS: PANTOPRAZOLE SODIUM IV 40 MG VIAL IV PUSH (08:31)
[2024-05-14] MEDS: POTASSIUM CHLORIDE INJ 40 MEQ in SODIUM CHLORIDE 0.9% IV 500 ML 130 MEQ IVPB (08:31)
--- NOTE | 2024-05-14 08:52 | PC.NURSE ---
Patient off of unit to GI lab
[2024-05-14] MEDS: LACTATED RINGERS 1,000 ML 150 ML IV CONT (08:55)
--- NOTE | 2024-05-14 09:05 | WPDANESEPPF ---
Anes - Initial Pre Proc Eval Procedure: Operation Date: 05/14/24 13:00 Proposed Procedures p Esophagogastroduodenoscopy - Tomy Reyes MD Date/Time: 05/14/24 09:05 Surgeon: Nora Newman APRN Pre Op Diagnosis: Upper GIB/High Anion Gap Patient Data Age: 28 Gender: M Height: 1.85 m Weight: 87.5 kg Last Vital Signs Temp 97.9 F 05/14/24 08:45 Pulse 80 05/14/24 08:45 Resp 12 05/14/24 08:45 BP 124/72 05/14/24 08:45 Pulse Ox 99 05/14/24 08:45 O2 Del Method Room Air 05/14/24 08:45 Allergies Allergy/AdvReac Type Severity Reaction Status Date / Time No Known Allergies Allergy Verified 05/14/24 08:56 Home Medications Medication Instructions Recorded Confirmed Type No Home Medications 03/20/24 05/14/24 History Laboratory Tests 05/13/24 05/13/24 05/13/24 12:02 14:17 14:34 WBC 16.3 H K/mm3 (4.5-10.0) RBC 5.03 M/mm3 (4.6-6.20) Hgb 16.5 g/dL (14.0-18.0) Hct 49.1 % (42.0-52.0) MCV 97.6 fl (80-100) MCH 32.8 pg (26-34) MCHC 33.6 g/dl (32-36) RDW 12.5 % (11.5-14.5) Plt Count 376 H k/mm3 (150-375) MPV 10.4 fl (7.4-10.4) Immature Gran % (Auto) 0.9 H % (0-0.5) Neut % (Auto) 88.1 H % (45.5-73.1) Lymph % (Auto) 3.4 L % (18.3-44.2) [place] % (Auto) 7.4 % (2.6-8.5) Eos % (Auto) 0.1 % (0-4.4) Baso % (Auto) 0.1 L % (0.2-1.2) Lymph # (Auto) 0.55 L K/mm3 (0.9-3.2) [place] # (Auto) 1.2 H K/mm3 (0.1-0.6) Eos # (Auto) 0.0 K/mm3 (0-0.3) Baso # (Auto) 0.0 K/mm3 (0.0-0.1) Abs Immat Gran (auto) 0.15 H K/mm3 (0.00-0.031) Absolute Neuts (auto) 14.4 H K/mm3 (1.3-6.7) Absolute Nucleated RBC 0.000 K/mm3 (0.0-0.012) Nucleated RBC % 0.0 % (0.0-0.2) PT 13.7 Seconds (11.1-14.7) INR 1.0 APTT 24.9 Seconds (22.3-36.8) Puncture Site Left radial ABG pH 7.498 H (7.350-7.450) ABG pCO2 20.3 L* mmHg (35.0-45.0) ABG pO2 110.6 H mmHg (80.0-100.0) ABG PO2/FiO2 Ratio 5.27 % ABG HCO3 15.4 L mEq/l (22.0-26.0) ABG O2 Saturation 98.5 % (95.0-100.0) ABG O2 Content 22.4 H %vol (16.0-22.0) ABG Base Excess -4.9 mEq/l (+/-2.0) A-a Gradient 14.8 mmHg Oxyhemoglobin 98.1 % THb (90.0-100.0) Total Hemoglobin 16.2 g/dL (12.0-18.0) O2 Delivery Device Room air O2 Liters/Min 0.0 LPM FiO2 21 % Sodium 138 mmol/L (137-145) Potassium 4.0 mmol/L (3.4-5.0) Chloride 86 L mmol/L (98-107) Carbon Dioxide 11 L mmol/L (22-30) Anion Gap 41 H mmol/L (4-12) BUN 31 H mg/dL (9-20) Creatinine 2.00 H mg/dL (0.7-1.3) Estim Creat Clear Calc 57 ml/min Estimated GFR 40 L (59 - ) Glucose 159 H mg/dL (65-110) POC Capillary Glucose Lactic Acid 2.4 H mmol/L (0.7-2.0) Calcium 9.8 mg/dL (8.4-10.2) Magnesium Total Bilirubin 1.2 mg/dL (0.2-1.3) AST 45 U/L (17-59) ALT 47 U/L (6-50) Alkaline Phosphatase 122 U/L (38-126) Total Creatine Kinase Total Protein 11.0 H g/dL (6.3-8.2) Albumin > 6.0 H g/dL (3.5-5.1) Beta-Hydroxybutyrate/Acetoacetate 10.20 H mmol/L (0.02-0.27) Urine Color Urine Appearance Urine pH Ur Specific [place] Urine Protein Urine Glucose (UA) Urine Ketones Ur Blood (Man) Urine Nitrate Urine Bilirubin Urine Urobilinogen Add Ur Microanalysis Leuk
--- NOTE | 2024-05-14 09:41 | WPDGICN ---
Assessment and Plan Assessment and plan (1) Coffee ground emesis: Code(s): K92.0 - Hematemesis Status: Acute Assessment and Plan: will repeat egd, probably erosive esophagitis- he has been drinking and not using ppi strongly advised to quit alcohol, he is on iv protonix now more recommendations after egd (2) Abdominal pain: Code(s): R10.9 - Unspecified abdominal pain Status: Acute Assessment and Plan: better egd (3) Acute kidney injury: Code(s): N17.9 - Acute kidney failure, unspecified Status: Acute Assessment and Plan: from dehydration/anorexia/alcohol abuse medical support, fluids (4) Reflux esophagitis: Code(s): K21.00 - Gastro-esophageal reflux disease with esophagitis, without bleeding Status: Acute Assessment and Plan: iv protonix (5) ALEJANDRO (acute kidney injury): Code(s): N17.9 - Acute kidney failure, unspecified Status: Acute (6) High anion gap metabolic acidosis: Code(s): E87.29 - Other acidosis Status: Acute (7) Alcohol abuse: Code(s): F10.10 - Alcohol abuse, uncomplicated Status: Acute GI Consult Note Consult date/time: 05/14/24 09:41 Reason for consult: coffee ground emesis HPI: Mainor Edward is a 28 year old male history of grade 4 reflux esophagitis on EGD in March 2024, alcohol abuse, and anxiety who presented to the emergency department via private vehicle for evaluation of abdominal pain. He once again started drinking and stopped using pantoprazole that was prescribed. For last couple of days with severe epigastric pain with nausea and one episode of coffee-ground emesis yesterday. Unable to eat much and finally came to ER. Labs showed WBC count of 16.3, chloride 96, carbon dioxide 11, anion gap 41, BUN 31, creatinine 2.00, glucose 159, lactic acid 2.4, total protein 11.0, albumin greater than 6. He is npo. Review of Systems Constitutional: Constitutional: Reports fatigue Eyes: Eyes: Denies blurry vision ENT: Reports Normal hearing present, Denies headache(s) and Denies neck pain Cardiovascular: Cardiovascular: Denies chest pain and Denies dyspnea Respiratory: Respiratory: Denies dyspnea Gastrointestinal: Gastrointestinal: Reports nausea and Reports vomiting Genitourinary: Genitourinary: Denies dysuria Musculoskeletal: Musculoskeletal: Denies neck pain Integumentary/Breasts: Skin/Breast: Denies dry skin Neurologic: Reports Normal hearing present and Denies headache(s) Psychiatric: Psychiatric: Reports anxiety and Denies behavioral changes Endocrine: Endocrine: Denies change in body appearance Allergic/Immunologic: Allergic/Immunologic: Denies urticaria PMFSH Past Medical History Medical History Alcohol abuse Anxiety Coffee ground emesis Reflux esophagitis Vapes nicotine containing substance Surgical History Surgical History History of esophagogastroduodenoscopy (03/2024) Grade 4 reflux esophagitis and hiatal hernia. Social History Social History Social History: Surrogate medical decision maker: Afshin Edward, father. Code status: Full code. Years smoked: 9 Smoking status: Current every day smoker Tobacco type: e-cigarettes/vaping Second hand tobacco smoke exposure: No Alcohol intake: former Alcohol use details: Drinks a pint of alcohol a day. Substance use: current Substance use type: marijuana Other substance usage details: Daily marijuana Last use: 05/13/24 Do You Feel Safe in your Home?: Yes Lack of Transportation: No Lack of Food: Never True Current Housing: I Have Housing Concerned About Future Housing: No Difficulty Paying Gas/Electric Bills: No Difficulty Paying for Meds: No Currently Unemployed: No Education: Trade/Vocational Certificate Difficulty w/ Childcare or Family Care: No S
[2024-05-14 11:20] LABS: Glucose Point of Care 90 mg/dl (65-105)
[2024-05-14] MEDS: SUCRALFATE SUSP 100 MG/ML 10 ML UDC 1000 MG PO (11:45)
--- NOTE | 2024-05-14 12:34 | PM.DS ---
DS: Admitting Diagnosis Discharge Date 05/14/2024 Admitting Diagnosis Erosive esophagitis/alcohol withdrawal DS: Discharge Diagnosis Discharge Diagnosis (1) Reflux esophagitis: Code(s): K21.00 - Gastro-esophageal reflux disease with esophagitis, without bleeding Status: Acute (2) Abdominal pain: Code(s): R10.9 - Unspecified abdominal pain Status: Acute (3) Acute kidney injury: Code(s): N17.9 - Acute kidney failure, unspecified Status: Acute (4) High anion gap metabolic acidosis: Code(s): E87.29 - Other acidosis Status: Acute (5) Ketoacidosis: Code(s): E87.29 - Other acidosis Status: Acute (6) Dehydration: Code(s): E86.0 - Dehydration Status: Acute (7) Alcohol abuse: Code(s): F10.10 - Alcohol abuse, uncomplicated Status: Acute Plan The patient presented to the emergency department for evaluation of abdominal pain with reports of coffee-ground emesis as detailed in HPI. Labs, imaging, EKG, and all reports were personally reviewed. EGD in March showed grade 4 reflux esophagitis which is likely the cause of his symptoms though cannot rule out ulcer. He can have clears tonight and will be NPO after midnight for possible EGD tomorrow. Continue pantoprazole 40 mg IV b.i.d.. Acute kidney injury which is likely due to profound dehydration and he will be aggressively hydrated. Ketoacidosis and renal failure should improve with hydration and labs will be monitored closely. Avoid nephrotoxic agents and monitor strict I/O. He has mild withdrawal symptoms with his last drink being about 48 hours ago. Initiate CIWA protocol. Nicotine patch ordered per patient request. Resume fluoxetine and propanolol for anxiety once tolerating p.o.. Findings and treatment plan were discussed with the patient. Questions were solicited and answered to satisfaction. The patient's medical management will be taken over by the hospitalist team in a.m. DS: Summary Hospital Course Reason for hospitalization: Erosive esophagitis/alcohol withdrawal Hospital Course: Admission: Medical Chart This is a 28-year-old male with history of grade 4 reflux esophagitis on EGD in March 2024, alcohol abuse, and anxiety who presented to the emergency department via private vehicle for evaluation of abdominal pain. The patient provides the following history. Since his hospitalization 2 months ago he has started drinking again admits that he stopped taking the pantoprazole and sucralfate which was prescribed to him. For the past couple of days he began experiencing severe epigastric pain with nausea and at least 1 episode of coffee-ground emesis yesterday. He has not been able to eat or drink the last 48 hours due to his symptoms. He is having some tremors. He denies hallucinations, seizure activity, chest pain, shortness of breath, melena, and hematochezia. In the ED: He was afebrile on arrival with stable vital signs and a blood pressure of 138/82. Labs were significant for WBC count of 16.3, chloride 96, carbon dioxide 11, anion gap 41, BUN 31, creatinine 2.00, glucose 159, lactic acid 2.4, total protein 11.0, albumin greater than 6, beta hydroxybutyrate 10.20. ABG showed a pH of 7.498, pCO2 20.3, PO2 110.6, HC03 15.4. He was given a 2 L normal saline bolus, pantoprazole 80 mg IV push, and prochlorperazine 5 mg IV and he is being admitted in this setting for further treatment and evaluation. 05/14/2024: DISCHARGED Patient was seen proceeding his EGD and was feeling much better. EGD showed severe erosive esophagitis but no active bleeding. Patient educated on the need for immediate alcohol cessation. He was prescribed Protonix BID and carafate and will need EGD in 5-6 months with GI. Patient was tolerating diet CIWA at a 1. He was discharged to home. Status at Discharge Functional status at discharge: independent ambulation Overall status at discharge: patient is back to baseline Time Spent with P
== END 2024-05-14 15:30 | disposition home or self-care (01) ==
LOC: ANHED 13:40 → ANH3MEDSUR 16:41
PROVIDERS: Internal Medicine Gastroenterology; Physician Assistant; Admitting Provider General Practice; Emergency Provider Student in an Organized Health Care Education/Training Program; Visit Provider Nurse Practitioner Family
PROC: 0DJ08ZZ Inspection of Upper Intestinal Tract, Via Natural or Artificial Opening Endoscopic (ICD-10-PCS; CPT 43235; principal; 2024-05-14 13:00)
DX: N17.9 Acute kidney failure, unspecified (principal); K22.10 Ulcer of esophagus without bleeding; K29.70 Gastritis, unspecified, without bleeding; K21.00 Gastro-esophageal reflux disease with esophagitis, without bleeding; K44.9 Diaphragmatic hernia without obstruction or gangrene; E87.20 Acidosis, unspecified; E86.0 Dehydration; D72.829 Elevated white blood cell count, unspecified; D75.839 Thrombocytosis, unspecified; R77.0 Abnormality of albumin; R11.2 Nausea with vomiting, unspecified; F17.290 Nicotine dependence, other tobacco product, uncomplicated; F12.90 Cannabis use, unspecified, uncomplicated; F10.10 Alcohol abuse, uncomplicated
CPT/HCPCS: 43239; 36415; 36600; 80048; 80053; 81001; 82010; 82550; 82805; 82948; 83605; 83735; 85025; 85027; 85610; 85730; 86850; 86900; 86901; 88305; 96361; 96374; 96375; 99285; A9270; G0378; J0780; J2001; J2405; J2470; J2704; J3411; J3480; J7030; J7040; J7042; J7120

== ENCOUNTER 2024-09-14 10:25 | Emergency (ER) | payer OTHER, SELFPAY ==
[2024-09-14] VITALS (8 sets, daily range): BP systolic 126–148; BP diastolic 64–88; PULSE 73–121; RESP 12–20; TEMP 36.4–36.8; O2SAT 96–100
[2024-09-14 10:36] LABS: Glucose Point of Care 171 mg/dl (65-105)
[2024-09-14] MEDS: SODIUM CHLORIDE 0.9% IV 1,000 ML 999 ML IV CONT ×2 (12:44→14:43)
[2024-09-14] MEDS: ONDANSETRON INJ 4 MG/2 ML VIAL IV PUSH ×2 (12:45→14:43)
[2024-09-14 12:53] LABS: Basophils Percent Auto 0.1 % (0.2-1.2); Eosinophils Absolute Auto 0.1 K/mm3 (0-0.3); Eosinophils Percent Auto 0.4 % (0-4.4); Hematocrit 45.3 % (42.0-52.0); Hemoglobin 16.1 g/dL (14.0-18.0); Immature Granulocyte Absolute 0.06 K/mm3 (0.00-0.031); Immature Granulocyte Percent A 0.4 % (0-0.5); Lymphocytes Absolute Auto 0.68 K/mm3 (0.9-3.2); Mean Corpuscular HGB Conc 35.5 g/dl (32-36); Mean Corpuscular Hemoglobin 32.2 pg (26-34); Mean Corpuscular Volume 90.6 fl (80-100); Mean Platelet Volume 10.1 fl (7.4-10.4); Monocytes Absolute Auto 1.4 K/mm3 (0.1-0.6); Monocytes Percent Auto 10.3 % (2.6-8.5); Neutrophils Absolute Auto 11.4 K/mm3 (1.3-6.7); Neutrophils Percent Auto 83.8 % (45.5-73.1); Platelet Count Result 318 k/mm3 (150-375); Red Cell Distribution Width 11.9 % (11.5-14.5); White Blood Count 13.7 K/mm3 (4.5-10.0)
[2024-09-14 13:04] LABS: Alanine Aminotransferase 60 U/L (6-50); Albumin Level 5.9 g/dL (3.5-5.1); Alkaline Phosphatase 110 U/L (38-126); Anion Gap 25 mmol/L (4-12); Aspartate Amino Transferase 60 U/L (17-59); Bilirubin,Total 1.8 mg/dL (0.2-1.3); Blood Urea Nitrogen 54 mg/dL (9-20); Calcium 10.5 mg/dL (8.4-10.2); Carbon Dioxide 25 mmol/L (22-30); Chloride 83 mmol/L (98-107); Estimated CRCL calculation 73 ml/min; Estimated Glomerular Filt Rate 57; Glucose 123 mg/dL (65-110); Lipase 88 U/L (23-300); Potassium 3.5 mmol/L (3.4-5.0); Sodium 133 mmol/L (137-145)
[2024-09-14 13:36] LABS: Ethanol < 10 mg/dL (<10)
--- NOTE | 2024-09-14 14:28 | ED_ITS ---
HPI - Nausea/Vomiting/Diarrhea General Chief complaint: Nausea/Vomiting/Diarrhea Stated complaint: n/v x 2 days Time Seen by Provider: 09/14/24 13:01 History of Present Illness HPI Narrative: Patient is a 29-year-old male who presents ER with nausea vomiting. Ongoing over last 2-3 days since going on alcoholic Suh where he was drinking 1/5 of alcohol a day. He had been to binge drinking for 3 days. No history of alcohol withdrawal causing seizure. Has had issues with vomiting after alcohol binges in the past. No fevers or chills. Denies diarrhea. No blood in his emesis. Related Data Allergies Allergy/AdvReac Type Severity Reaction Status Date / Time No Known Allergies Allergy Verified 05/14/24 08:56 Review of Systems 2 Review of Systems: All systems reviewed & are unremarkable except as noted in HPI and below Constitutional: Constitutional: Reports no additional constitutional complaints ENT: Reports system reviewed and no additional complaints, except as documented Cardiovascular: Cardiovascular: Reports no additional cardiovascular complaints Respiratory: Respiratory: Reports no additional respiratory complaints Gastrointestinal: Gastrointestinal: Reports abdominal pain, Reports heartburn, Reports nausea and Reports vomiting PMFSH Past Medical History Medical History Coffee ground emesis Reflux esophagitis Vapes nicotine containing substance Anxiety Alcohol abuse Surgical History Surgical History History of esophagogastroduodenoscopy (03/2024) Grade 4 reflux esophagitis and hiatal hernia. Social History Social History Social History: Surrogate medical decision maker: Afshin Edward, father. Code status: Full code. Years smoked: 9 Smoking status: Current every day smoker Tobacco type: e-cigarettes/vaping Second hand tobacco smoke exposure: No Alcohol intake: former Alcohol use details: Drinks a pint of alcohol a day. Substance use: current Substance use type: marijuana Other substance usage details: Daily marijuana Last use: 05/13/24 Do You Feel Safe in your Home?: Yes Lack of Transportation: No Lack of Food: Never True Current Housing: I Have Housing Concerned About Future Housing: No Difficulty Paying Gas/Electric Bills: No Difficulty Paying for Meds: No Currently Unemployed: No Education: Trade/Vocational Certificate Difficulty w/ Childcare or Family Care: No Spiritual care concerns: No Exam 2 Narrative: GENERAL: Uncomfortable-appearing, well-nourished, and in no acute distress. HEAD: Normocephalic, atraumatic. ENT: Mucous membranes moist. NECK: Supple. CHEST: Clear to auscultation. No respiratory distress. HEART: Regular rate and rhythm. Normal peripheral pulses. ABDOMEN: Soft, nontender, nondistended. EXTREMITIES: Normal range of motion. No edema. SKIN: Warm, dry, no rash. NEURO: Alert and oriented x3. PSYCH: Normal mood and affect. Course Course Emergency Course: Patient hydrated. No longer vomiting. Received 2 L IV fluid. Mild bump in creatinine with patient is able to tolerate p.o. Feels much better after GI cocktail. Discharge home. Will provide alcoholic resources. Vital Signs Vital signs: Vital Signs Temperature 97.6 F 09/14/24 10:30 Pulse Rate 121 H 09/14/24 10:30 Respiratory Rate 20 09/14/24 10:30 Blood Pressure 126/88 09/14/24 10:30 Pulse Oximetry 100 09/14/24 10:30 Temperature 98.2 F 09/14/24 12:37 Pulse Rate 73 09/14/24 15:48 Respiratory Rate 12 09/14/24 15:48 Blood Pressure 132/86 09/14/24 13:31 Pulse Oximetry 98 09/14/24 15:48 MDM - Nausea/Vomiting/Diarrhea Lab Data 09/14/24 12:47 09/14/24 12:47 Labs: Lab Results 09/14/24 09/14/24 Range/Units 10:33 12:47 WBC 13.7 H (4.5-10.0) K/mm3 RBC 5.00 (4.6-6.20) M/mm3 Hgb 16.1 D (14.0-18.0) g/dL Hct 45.3 (42.0-52.0) % MCV 90.6 (80-100) fl MCH 32.2 (26-34) pg MCHC 35.5 (32-36) g/dl RDW 11.9 (11.5-14.5) % Plt Count 318 (150-375) k/mm3 MPV 10.1 (7.4-10.4) fl Immature Gran % (Auto) 0.4 (0-0.5) % Neut % (Auto) 83.8 H (45.5-73.1) % Lymph % (Auto) 5.0 L (18.3-44.2) % [place] % (Auto) 10.3 H (2.6-8.5) % Eos % (Auto) 0.4 (0-4.4) % Baso % (Auto) 0.1 L (0.2-1.2) % Lymph # (Auto) 0.68 L (0.9-3.2) K/mm3 [place] # (Auto) 1.4 H (0.1-0.6) K/mm3 Eos # (Auto) 0.1 (0-0.3) K/mm3 Baso # (Auto) 0.0 (0.0-0.1) K/mm3 Abs Immat Gran (auto) 0.06 H (0.00-0.031) K/mm3 Absolute Neuts (auto) 11.4 H (1.3-6.7) K/mm3 Absolute Nucleated RBC 0.000 (0.0-0.012) K/mm3 Nucleated RBC % 0.0 (0.0-0.2) % Sodium 133 L (137-145) mmol/L Potassium 3.5 (3.4-5.0) mmol/L Chloride 83 L (98-107) mmol/L Carbon Dioxide 25 (22-30) mmol/L Anion Gap 25 H (4-12) mmol/L BUN 54 H D (9-20) mg/dL Creatinine 1.48 H (0.7-1.3) mg/dL Estim Creat Clear Calc 73 ml/min Estimated GFR 57 L (59 - ) Glucose 123 H (65-110) mg/dL POC Capillary Glucose 171 H (65-105) mg/dl Calcium 10.5 H (8.4-10.2) mg/dL Total Bilirubin 1.8 H (0.2-1.3) mg/dL AST 60 H (17-59) U/L ALT 60 H (6-50) U/L Alkaline Phosphatase 110 (38-126) U/L Total Protein 10.0 H (6.3-8.2) g/dL Albumin 5.9 H (3.5-5.1) g/dL Lipase 88 (23-300) U/L Ethyl Alcohol < 10 (<10) mg/dL Discharge Plan Discharge Clinical Impression: Gastritis, Dehydration Patient Disposition: Home, Self-Care Condition: Stable Instructions: Gastritis (ED), Diet for Stomach Ulcers and Gastritis (ED) Additional Instructions: Return to the emergency department if you develop severe abdominal pain, severe nausea and vomiting to the point where you are unable to keep down fluids, if you develop chest pain or difficulty breathing, blood in your stool, dizziness or fainting, or if you develop any other new or concerning symptoms as these could be signs of more serious medical illness. Try to stay well hydrated. Patient Language: Japanese Prescriptions: New pantoprazole 40 mg tablet,delayed release (DR/EC) 40 mg PO BID Qty: 28 0RF ondansetron 4 mg tablet,disintegrating 4 mg PO Q6H PRN (Reason: nausea and vomiting) Qty: 10 0RF No Action sucralfate 100 mg/mL Suspension 1,000 mg PO ACHS Qty: 180 0RF thiamine HCl (vitamin B1) [Vitamin B-1] 100 mg Tablet 100 mg PO QAM Qty: 60 0RF folic acid 1 mg Tablet 1 mg PO DAILY Qty: 60 0RF pantoprazole [Protonix] 40 mg tablet,delayed release (DR/EC) 40 mg PO BID Qty: 120 0RF Follow-up/Referrals: Monico Gaxiola MD [Physician] - 1 Week UNKNOWN,DOCTOR [Primary Care Provider] - Stand Alone Forms: Work/School Release IP
[2024-09-14] MEDS: PANTOPRAZOLE SODIUM IV 40 MG VIAL IV PUSH (14:43)
[2024-09-14] MEDS: BELLADONNA ALK/PHENOB ELIX 10 ML, MAG HYDROX/ALUMINUM HYD/SIMETH 30 ML, LIDOCAINE 2% VI... PO (14:57)
== END 2024-09-14 16:45 | disposition home or self-care (01) ==
PROVIDERS: Emergency Provider Emergency Medicine
DX: K29.70 Gastritis, unspecified, without bleeding (principal); E86.0 Dehydration; F17.290 Nicotine dependence, other tobacco product, uncomplicated
CPT/HCPCS: 36415; 80053; 82077; 82948; 83690; 85025; 96361; 96374; 96375; 99284; A9270; J2405; J2470; J7030